=== PATIENT | female | born 2000 | race Caucasian/White ===

== ENCOUNTER 2021-04-04 00:12 | Emergency (ER) | payer OTHER ==
[2021-04-04 00:27] VITALS: BP 102/69; PULSE 91; RESP 22; TEMP 98.2
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
--- NOTE | 2021-04-04 01:43 | XR ---
EXAMINATION TYPE: XR ankle complete bilateral DATE OF EXAM: 04/04/2021 COMPARISON: NONE HISTORY: Pain TECHNIQUE: 6 views FINDINGS: Left and right ankle mortise appear anatomic. I see no fracture nor dislocation. Subtalar j oints appear normal. There are no erosions. IMPRESSION: Negative bilateral ankle exam. No fracture.
== END 2021-04-04 02:04 | disposition home or self-care (01) ==
LOC: EC 00:12
DX: S93.402A Sprain of unspecified ligament of left ankle, initial encounter (principal); S10.91XA Abrasion of unspecified part of neck, initial encounter; V89.2XXA Person injured in unspecified motor-vehicle accident, traffic, initial encounter; J45.909 Unspecified asthma, uncomplicated; F32.9 Major depressive disorder, single episode, unspecified
CPT/HCPCS: 99283